=== PATIENT | male | born 1970 | race Hispanic/Latino ===

== ENCOUNTER 2017-04-23 14:32 | Inpatient (IN) | payer OTHER ==
[~2017-04-23 14:32] MED LIST: Pneumococcal 23-Valent Vaccine IM ONE
[2017-04-23] MEDS ORDERED: Sodium Chloride 0.9% 1,000 ML IV STA (15:19)
[2017-04-23] MEDS ORDERED: Albuterol-Ipratrop 3 mg / 0.5 (3 ml) UD INH STA ×2 (15:19→15:20)
[2017-04-23] MEDS ORDERED: Azithromycin 500 MG in Sodium Chloride 0.9% 250 ML IV STA (15:20)
[2017-04-23] MEDS ORDERED: Azithromycin 500 MG IV IVPB ONE (15:25)
[2017-04-23] MEDS ORDERED: cefTRIAXone (Rocephin) 1 gm Inj ONE (15:25)
--- NOTE | 2017-04-23 15:32 | ED PDOC ---
HPI: General Adult Time Seen by Provider: 04/23/17 14:49 Chief Complaint (Nursing): Chest Pain Chief Complaint (Provider): Cough and pleuritic chest pain History Per: Patient History/Exam Limitations: no limitations Onset/Duration Of Symptoms: Days (x 3) Have you had recent travel within the past 21 days to any of the following countries: [place], [place], [place] or [place]?: No Current Symptoms Are (Timing): Still Present Additional Complaint(s): Ariel is a 46 y/o male who presents to the ED complaining of coughing, wheezing, and pleuritic chest pain for the past few days. Quit smoking 10 days ago. Denies any associated fever, palpitations, or recent travel. PMD: Dr. Vazquez Past Medical History Reviewed: Historical Data, Nursing Documentation, Vital Signs Vital Signs: Last Vital Signs Temp 98.6 F 04/23/17 14:35 Pulse 86 04/23/17 16:10 Resp 19 04/23/17 16:10 BP 120/67 04/23/17 16:10 Pulse Ox 98 04/23/17 16:10 - Medical History PMH: No Chronic Diseases - Surgical History Surgical History: No Surg Hx - Family History Family History: States: Unknown Family Hx - Social History Current smoker - smoking cessation education provided: Yes (quit 10 days ago) Alcohol: Occasional Drugs: Denies - Home Medications Home Medications: Ambulatory Orders Medication Instructions Recorded No Known Home Med 04/23/17 - Allergies Allergies/Adverse Reactions: Allergies Allergy/AdvReac Type Severity Reaction Status Date / Time No Known Allergies Allergy Verified 04/23/17 14:40 Review of Systems ROS Statement: Except As Marked, All Systems Reviewed And Found Negative Constitutional: Negative for: Fever Cardiovascular: Positive for: Chest Pain (pleuritic). Negative for: Palpitations Respiratory: Positive for: Cough, Wheezing Physical Exam - Reviewed Nursing Documentation Reviewed: Yes Vital Signs Reviewed: Yes - Physical Exam Appears: Positive for: Non-toxic, No Acute Distress Head Exam: Positive for: ATRAUMATIC, NORMAL INSPECTION, NORMOCEPHALIC Skin: Positive for: Normal Color, Warm, Dry Eye Exam: Positive for: EOMI, Normal appearance, PERRL ENT: Positive for: Normal ENT Inspection Neck: Positive for: Normal, Painless ROM, Supple Cardiovascular/Chest: Positive for: Regular Rate, Rhythm. Negative for: Murmur Respiratory: Positive for: Wheezing (bilateral), Respiratory Distress (mild) Gastrointestinal/Abdominal: Positive for: Normal Exam, Soft. Negative for: Tenderness Back: Positive for: Normal Inspection. Negative for: Vertebral Tenderness Extremity: Positive for: Normal ROM. Negative for: Pedal Edema, Deformity Neurologic/Psych: Positive for: Alert, Oriented - Laboratory Results Result Diagrams: 04/23/17 15:41 04/23/17 15:41 - ECG Interpretation Of ECG: ST @ 103, no ST-T changes. O2 Sat by Pulse Oximetry: 98 (RA) Pulse Ox Interpretation: Normal - Radiology X-Ray: Read By Radiologist (No acute disease in the chest.) Medical Decision Making Medical Decision Making: Time: 15:18 Initial Impression: Bronchitis, Pneumonia Initial Plan: --CMP --Troponin I --CBC w/ differential --D dimer --PTT --Prothrombin time --ED urine dipstick --EKG --blood culture --CXR stat --Duoneb 3 ml INH --NS IV 1000 ml at 1000 mls/hr --Zithomax 500 mg IV --Solu-medrol 125 mg IV --Rocephin 1 gm NS IV --Peak Flow pre/post treatment --Pending reevaluation Scribe Attestation: Documented by Lucinda Valdivia, acting as a scribe for Marilou Myers MD Provider Scribe Attestation: All medical record entries made by the Scribe were at my direction and personally dictated by me. I have reviewed the chart and agree that the record accurately reflects my personal performance of the history, physical exam, medical decision making, and the department course for this patient. I have also personally directed, reviewed, and agree with the discharge instructions and disposition. Disposition - Clinical Impression Clinical Impression: SIRS (systemic inflammatory response syndrome), Acute bronchitis - Patient ED Disposition Is Patient to be Admitted: Yes - Disposition Disposition Time: 18:43 Condition: STABLE Forms: [employer] (Slovak) - Pt Status Changed To: Hospital Disposition Of: Inpatient - Admit Certification Admit to Inpatient:: After my assessment, the patient will require hospitalization for at least two midnights. This is because of the severity of symptoms shown, intensity of services needed, and/or the medical risk in this patient being treated as an outpatient. - POA Present On Arrival: None
[2017-04-23 15:45] LABS: BASO # 0.1 K/uL (0.0-0.2); BASO % 0.5 % (0.0-2.0); EOS # 1.2 K/uL (0.0-0.7); EOS % 9.1 % (0.0-4.0); HEMOGLOBIN 15.1 g/dL (12.0-18.0); LYMPH # 2.9 K/uL (1.0-4.3); LYMPH % 22.9 % (20.0-40.0); MEAN CELL VOLUME 90.6 fl (80.0-94.0); MEAN CORPUSCULAR HEMOGLOBIN 30.3 pg (27.0-31.0); MEAN CORPUSCULAR HGB CONC 33.5 g/dL (33.0-37.0); MEAN PLATELET VOLUME 7.7 fl (7.2-11.7); MONO % 7.5 % (0.0-10.0); NEUT # 7.7 K/uL (1.8-7.0); NRBC % 0.1 % (0.0-0.0); RBC 4.99 Mil/uL (4.40-5.90); RED CELL DISTRIBUTION WIDTH 14.1 % (11.5-14.5); WHITE BLOOD COUNT 12.8 K/uL (4.8-10.8)
[2017-04-23 15:58] LABS: ALB/GLOB RATIO 1.5 (1.0-2.1); ALBUMIN 4.4 g/dL (3.5-5.0); ALT/SGPT 32 U/L (21-72); AST/SGOT 24 U/L (17-59); BLOOD UREA NITROGEN 9 mg/dl (9-20); CALCIUM 9.7 mg/dL (8.4-10.2); GFR AFRICAN-AMERICAN > 60; GFR NON-AFRICAN AMERICAN > 60
[2017-04-23 16:02] LABS: INR 1.2 (0.9-1.2); PARTIAL THROMBOPLASTIN TIME 32.2 Seconds (25.6-37.1); PROTHROMBIN TIME 12.7 Seconds (9.8-13.1)
[2017-04-23 18:35] LABS: VENOUS BLOOD GAS PCO2 46 mmHg (40-60); VENOUS BLOOD GAS PO2 17 mm/Hg (30-55)
--- NOTE | 2017-04-23 20:08 | RAD ---
HISTORY: SOB COMPARISON: No prior. FINDINGS: LUNGS: No active pulmonary disease. PLEURA: No significant pleural effusion identified, no pneumothorax apparent. CARDIOVASCULAR: Normal. OSSEOUS STRUCTURES: No significant abnormalities. VISUALIZED UPPER ABDOMEN: Normal. OTHER FINDINGS: None. IMPRESSION: No active disease.
[2017-04-23] MEDS: Albuterol-Ipratrop 3 mg / 0.5 (3 ml) UD INH SCH (21:59)
[2017-04-24] MEDS ORDERED: Pneumococcal 23-Valent Vaccine IM ONE (06:00)
[2017-04-24] MEDS: Albuterol-Ipratrop 3 mg / 0.5 (3 ml) UD INH SCH ×5 (07:49→19:38)
[2017-04-24 08:10] LABS: ALB/GLOB RATIO 1.5 (1.0-2.1); ALBUMIN 4.4 g/dL (3.5-5.0); ALT/SGPT 29 U/L (21-72); AST/SGOT 23 U/L (17-59); BLOOD UREA NITROGEN 11 mg/dl (9-20); CALCIUM 10.2 mg/dL (8.4-10.2); GFR AFRICAN-AMERICAN > 60; GFR NON-AFRICAN AMERICAN > 60; HEMOGLOBIN 14.6 g/dL (12.0-18.0); MEAN CELL VOLUME 90.6 fl (80.0-94.0); MEAN CORPUSCULAR HEMOGLOBIN 30.5 pg (27.0-31.0); MEAN CORPUSCULAR HGB CONC 33.6 g/dL (33.0-37.0); RBC 4.79 Mil/uL (4.40-5.90); RED CELL DISTRIBUTION WIDTH 13.8 % (11.5-14.5); WHITE BLOOD COUNT 11.3 K/uL (4.8-10.8)
--- NOTE | 2017-04-24 09:42 | CARD ---
APPROVED REPORT EKG Measurement Heart [id number] <Conclusion> Sinus tachycardia Possible Left atrial enlargement Borderline ECG
[2017-04-24] MEDS ORDERED: methylPREDNISolone 40 MG in Sodium Chloride 0.9% 50 ML IVPB SCH (11:30)
[2017-04-24] MEDS: guaiFENesin DM 200 mg-20 mg/10 ml UD PO PRN ×3 (12:34→23:08)
[2017-04-24] MEDS: methylPREDNISolone 40 MG in Sodium Chloride 0.9% 50 ML IVPB SCH (23:08)
[2017-04-25] MEDS: Albuterol-Ipratrop 3 mg / 0.5 (3 ml) UD INH SCH ×2 (08:19→11:49)
--- NOTE | 2017-04-25 10:14 | CP.PCM.HP ---
History of Present Illness - History of Present Illness History of Present Illness: This is a 46 y/o male admitted for acute attack of asthma. Claims that he had never had any asthma in the past. He stopped smoking 2 weeks prior to onset of symptoms. Past Patient History - Past Medical History & Family History Past Medical History?: Yes - Past Social History Smoking Status: Former Smoker - CARDIAC Hx Cardiac Disorders: No - PULMONARY Hx Respiratory Disorders: No - NEUROLOGICAL Hx Neurological Disorder: No - HEENT Hx HEENT Problems: No - RENAL Hx Chronic Kidney Disease: No - ENDOCRINE/METABOLIC Hx Endocrine Disorders: No - HEMATOLOGICAL/ONCOLOGICAL Hx Blood Disorders: No - INTEGUMENTARY Hx Dermatological Problems: No - MUSCULOSKELETAL/RHEUMATOLOGICAL Hx Musculoskeletal Disorders: No - GASTROINTESTINAL Hx Gastrointestinal Disorders: No - GENITOURINARY/GYNECOLOGICAL Hx Genitourinary Disorders: No - PSYCHIATRIC Hx Psychophysiologic Disorder: No - SURGICAL HISTORY Hx Surgeries: Yes Other/Comment: Rhinoplasty - ANESTHESIA Hx Anesthesia: Yes Hx Anesthesia Reactions: No Meds Allergies/Adverse Reactions: Allergies Allergy/AdvReac Type Severity Reaction Status Date / Time Sulfa (Sulfonamide Allergy SWELLING Verified 04/23/17 23:28 Antibiotics) Results - Vital Signs Recent Vital Signs: Last Vital Signs Temp 97.9 F 04/25/17 08:07 Pulse 70 04/25/17 08:07 Resp 18 04/25/17 08:07 BP 116/70 04/25/17 08:07 Pulse Ox 97 04/25/17 08:07 - Labs Result Diagrams: 04/24/17 05:30 04/24/17 05:30
--- NOTE | 2017-04-25 10:16 | CP.PCM.DIS ---
Provider - Provider Date of Admission: 04/23/17 18:41 Attending physician: Sorin Reid MD Hospital Course - Lab Results Lab Results: Most Recent Lab Values WBC 11.3 K/uL (4.8-10.8) H 04/24/17 05:30 RBC 4.79 Mil/uL (4.40-5.90) 04/24/17 05:30 Hgb 14.6 g/dL (12.0-18.0) 04/24/17 05:30 Hct 43.4 % (35.0-51.0) 04/24/17 05:30 MCV 90.6 fl (80.0-94.0) 04/24/17 05:30 MCH 30.5 pg (27.0-31.0) 04/24/17 05:30 MCHC 33.6 g/dL (33.0-37.0) 04/24/17 05:30 RDW 13.8 % (11.5-14.5) 04/24/17 05:30 Plt Count 277 K/uL (130-400) 04/24/17 05:30 MPV 7.7 fl (7.2-11.7) 04/23/17 15:41 Neut % (Auto) 60.0 % (50.0-75.0) 04/23/17 15:41 Lymph % (Auto) 22.9 % (20.0-40.0) 04/23/17 15:41 [place] % (Auto) 7.5 % (0.0-10.0) 04/23/17 15:41 Eos % (Auto) 9.1 % (0.0-4.0) H 04/23/17 15:41 Baso % (Auto) 0.5 % (0.0-2.0) 04/23/17 15:41 Neut # 7.7 K/uL (1.8-7.0) H 04/23/17 15:41 Lymph # 2.9 K/uL (1.0-4.3) 04/23/17 15:41 [place] # 1.0 K/uL (0.0-0.8) H 04/23/17 15:41 Eos # 1.2 K/uL (0.0-0.7) H 04/23/17 15:41 Baso # 0.1 K/uL (0.0-0.2) 04/23/17 15:41 PT 12.7 Seconds (9.8-13.1) 04/23/17 15:41 INR 1.2 (0.9-1.2) 04/23/17 15:41 APTT 32.2 Seconds (25.6-37.1) 04/23/17 15:41 D-Dimer, Quantitative 169 ng/mlDDU (0-230) 04/23/17 15:41 pO2 17 mm/Hg (30-55) L 04/23/17 18:32 VBG pH 7.40 (7.32-7.43) 04/23/17 18:32 VBG pCO2 46 mmHg (40-60) 04/23/17 18:32 VBG HCO3 25.3 mmol/L 04/23/17 18:32 VBG Total CO2 29.9 mmol/L (22-28) H 04/23/17 18:32 VBG O2 Sat (Calc) 32.6 % (40-65) L 04/23/17 18:32 VBG Base Excess 3.0 mmol/L (0.0-2.0) H 04/23/17 18:32 VBG Potassium 4.8 mmol/L (3.6-5.2) 04/23/17 18:32 Sodium 140.0 mmol/L (132-148) 04/23/17 18:32 Chloride 109.0 mmol/L (98-107) H 04/23/17 18:32 Glucose 121 mg/dL (75-110) H 04/23/17 18:32 Lactate 1.4 mmol/L (0.7-2.1) 04/23/17 18:32 FiO2 21.0 % 04/23/17 18:32 Sodium 141 mmol/l (132-148) 04/24/17 05:30 Potassium 5.1 MMOL/L (3.6-5.0) H 04/24/17 05:30 Chloride 105 mmol/L (98-107) 04/24/17 05:30 Carbon Dioxide 26 mmol/L (22-30) 04/24/17 05:30 Anion Gap 15 (10-20) 04/24/17 05:30 BUN 11 mg/dl (9-20) 04/24/17 05:30 Creatinine 0.7 mg/dL (0.8-1.5) L 04/24/17 05:30 Est GFR ( Amer) > 60 04/24/17 05:30 Est GFR (Non-Af Amer) > 60 04/24/17 05:30 Random Glucose 112 mg/dL (75-110) H 04/24/17 05:30 Calcium 10.2 mg/dL (8.4-10.2) 04/24/17 05:30 Total Bilirubin 0.4 mg/dl (0.2-1.3) 04/24/17 05:30 AST 23 U/L (17-59) 04/24/17 05:30 ALT 29 U/L (21-72) 04/24/17 05:30 Alkaline Phosphatase 81 U/L (38-126) 04/24/17 05:30 Troponin I < 0.0120 ng/mL (0.00-0.120) 04/23/17 15:41 Total Protein 7.3 G/DL (6.3-8.2) 04/24/17 05:30 Albumin 4.4 g/dL (3.5-5.0) 04/24/17 05:30 Globulin 3.0 gm/dL (2.2-3.9) 04/24/17 05:30 Albumin/Globulin Ratio 1.5 (1.0-2.1) 04/24/17 05:30 Venous Blood Potassium 4.8 mmol/L (3.6-5.2) 04/23/17 18:32 - Hospital Course Hospital Course: This is a 46 y/o male admitted for acute attack of asthma 2 weeks after smoking cessation Claims that he never had any asthma in the past. Discharge Exam - Head Exam Head Exam: ATRAUMATIC, NORMAL INSPECTION, NORMOCEPHALIC Discharge Plan - Follow Up Plan Condition: STABLE Disposition: HOME/ ROUTINE
[2017-04-25] MEDS: methylPREDNISolone 40 MG in Sodium Chloride 0.9% 50 ML IVPB SCH (12:27)
[2017-04-25 12:41] VITALS: BP 109/61; PULSE 84; RESP 20; TEMP 98; O2SAT 96
== END 2017-04-25 13:50 | disposition home or self-care (01) | DRG 203 ==
LOC: H.ER 14:32 → H.ERHOLD 18:41 → H.TEL 20:48
PROVIDERS: ADMIT Family Medicine; ATTEND Family Medicine
PROC: 3E0F73Z Introduction of Anti-inflammatory into Respiratory Tract, Via Natural or Artificial Opening (ICD-10-PCS; principal; 2017-04-23)
PROC: 3E0234Z Introduction of Serum, Toxoid and Vaccine into Muscle, Percutaneous Approach (ICD-10-PCS; 2017-04-24)
DX: J20.9 Acute bronchitis, unspecified (principal); J45.998 Other asthma; F17.200 Nicotine dependence, unspecified, uncomplicated; Z23 Encounter for immunization